=== PATIENT | female | born 1995 | race Caucasian/White ===

== ENCOUNTER 2017-05-13 04:45 | Emergency (ER) | payer OTHER ==
[~2017-05-13] VITALS: Ht 157.5 cm; Wt 113.4 kg
--- NOTE | 2017-05-13 04:56 | NUR ---
PT BIB SELF FROM HOME, PT AMBULATORY TO ER BED 2 PT C/O LEFT SIDED PELVIC PAIN X 2 WEEKS. PT AOX3 RR EVEN AND UNLABORED. NO SOB NOTED. NAD NOTED. NO NVD AT THIS TIME. PT GOWNED AND WAITING FOR MD GRAHAM. URINE COLLECTED. CALLED LAB FOR EXHIBITIONS CURATOR.
--- NOTE | 2017-05-13 05:15 | NUR ---
PT MOVED TO ER BED 7 FOR PELVIC EXAM. LAB AT BEDSIDE FOR BLOOD DRAW.
[2017-05-13 05:25] LABS: BASOPHILS % (AUTO) 0.5 % (0.0-2.0); EOSINOPHILS # (AUTO) 0.3 /CMM (0.0-0.7); EOSINOPHILS % (AUTO) 3.2 % (0.0-6.0); HEMATOCRIT 41 % (33-45); HEMOGLOBIN 13.8 g/dL (11.5-14.8); LYMPHOCYTES # (AUTO) 2.8 /CMM (0.8-4.8); MEAN CORPUSCULAR HEMOGLOBIN 27 PG (26.0-33.0); MEAN CORPUSCULAR HGB CONC 34 g/dl (31.0-36.0); MEAN CORPUSCULAR VOLUME 80 fL (82-100); MONOCYTES # (AUTO) 0.7 /CMM (0.1-1.30); MONOCYTES % (AUTO) 7.9 % (2.0-12.0); NEUTROPHILS # (AUTO) 4.5 /CMM (1.8-8.9); NEUTROPHILS % (AUTO) 54.4 % (43.0-81.0); PLATELET COUNT (AUTO) 293 /CMM (150-450); RDW COEFFICIENT OF VARIATION 12.8 (11.5-15.0); RED BLOOD CELL COUNT(AUTO) 5.11 MIL/uL (4.0-5.2); WHITE BLOOD COUNT (AUTO) 8.3 K/uL (4.3-11.0)
--- NOTE | 2017-05-13 05:26 | NUR ---
DR. MENDENHALL AT BEDSIDE FOR PELVIC EXAM. GAUTAM AT BEDSIDE WITNESS.
[2017-05-13 05:31] LABS: APPEARANCE,URINE CLEAR (CLEAR); BILIRUBIN,URINE 1+ (NEGATIVE); BLOOD, URINE 3+ Ery/uL (NEGATIVE); COLOR,URINE DARK YELLO (YELLOW); KETONES,URINE TRACE (NEGATIVE); LEUKOCYTE ESTERASE ,URINE NEGATIVE (NEGATIVE); NITRITE, URINE NEGATIVE (NEGATIVE); PH,URINE 5.5 (5.0-8.0); PROTEIN,URINE 1+ mg/dl (NEGATIVE); UGLUCOSE NEGATIVE (NEGATIVE); UROBILINOGEN,URINE 0.2 EU/dL (0.2)
[2017-05-13 05:34] LABS: CALCIUM, SERUM 8.8 mg/dL (8.5-10.1); CREATININE 0.8 mg/dL (0.6-1.3); POTASSIUM 3.6 mmol/L (3.5-5.1)
[2017-05-13 05:38] LABS: BACTERIA,URINE Moderate /HPF (None Seen); RBC,URINE TOO NUMEROUS TO COUN /HPF (0-2)
[2017-05-13 05:39] LABS: PREGNANCY TEST URINE QUAL NEGATIVE (NEGATIVE); SQUAMOUS EPITHELIAL CELL,UR Moderate /HPF (None Seen)
--- NOTE | 2017-05-13 06:21 | NUR ---
VIKRAM AT BEDSIDE
[2017-05-13] MEDS ORDERED: KETOROLAC TROMETHAMINE 15 MG/ML VIAL ONE (07:04)
--- NOTE | 2017-05-13 07:14 | NUR ---
DR. MENDENHALL AT BEDSIDE SPEAKING TO PT REGARDING RESULTS.
--- NOTE | 2017-05-13 07:18 | NUR ---
Patient discharged to home in stable condition. Written and verbal after care instructions given. Patient verbalizes understanding of instruction. PT ambulatory with a steady gait
[2017-05-13 07:19] VITALS: BP 128/68
[2017-05-13] MEDS ORDERED: KETOROLAC TROMETHAMINE INJ 30 MG/ML VIAL IM/IV ONE (07:30)
== END 2017-05-13 07:19 | disposition home or self-care (01) ==
LOC: ER 04:46
DX: N83.202 Unspecified ovarian cyst, left side (principal); Z98.890 Other specified postprocedural states; Z91.018 Allergy to other foods; Z91.013 Allergy to seafood
CPT/HCPCS: 36415; 76856; 80048; 81001; 84703; 85025; 87086; 96372; 99285; A4606; A6402; J1885; Z7610; 81000-TC

== ENCOUNTER 2018-03-02 18:24 | Emergency (ER) | payer OTHER ==
[~2018-03-02] VITALS: Ht 157.5 cm; Wt 113.4 kg
--- NOTE | 2018-03-02 19:18 | NUR ---
REPORT REC'D FROM LAURA MORIN FOR MYLENE.
--- NOTE | 2018-03-02 20:17 | NUR ---
CALLED ROYCE HANSON.
--- NOTE | 2018-03-02 20:31 | NUR ---
PT IS REC'ING AN DEEPALI WRAP TO THE LEFT ANKLE.
--- NOTE | 2018-03-02 20:32 | NUR ---
Patient discharged to home in stable condition. Written and verbal after care instructions given. Patient verbalizes understanding of instruction. PT AMBULATED OUT WITH A SLOW STEADY GAIT. VSS.
[2018-03-02 20:38] VITALS: BP 128/82
== END 2018-03-02 18:46 | disposition home or self-care (01) ==
LOC: ER 18:27
DX: S93.692A Other sprain of left foot, initial encounter (principal); S90.122A Contusion of left lesser toe(s) without damage to nail, initial encounter; Z86.19 Personal history of other infectious and parasitic diseases; Z90.89 Acquired absence of other organs; Z91.013 Allergy to seafood; Z91.018 Allergy to other foods; W01.0XXA Fall on same level from slipping, tripping and stumbling without subsequent striking against object, initial encounter; Y93.89 Activity, other specified; Y92.89 Other specified places as the place of occurrence of the external cause; Y99.8 Other external cause status
CPT/HCPCS: 73630-TC; A4606; Z7610

== ENCOUNTER 2019-11-26 14:01 | Emergency (ER) | payer OTHER ==
[~2019-11-26] VITALS: Ht 162.6 cm; Wt 112.0 kg
[2019-11-26 14:09] VITALS: BP 165/82
--- NOTE | 2019-11-26 14:20 | NUR ---
SEEN AND EXAMINED BY .
--- NOTE | 2019-11-26 14:55 | NUR ---
Patient discharged to home in stable condition. Written and verbal after care instructions given. Patient verbalizes understanding of instruction.
--- NOTE | 2019-11-26 14:56 | NUR ---
Patient discharged to home in stable condition. Written and verbal after care instructions given. Patient verbalizes understanding of instruction.
== END 2019-11-26 14:56 | disposition home or self-care (01) ==
LOC: ER 14:01
DX: J06.9 Acute upper respiratory infection, unspecified (principal)

== ENCOUNTER 2020-09-27 12:17 | Emergency (ER) | payer OTHER ==
[~2020-09-27] VITALS: Ht 162.6 cm; Wt 99.8 kg
[2020-09-27 12:29] VITALS: BP 99/57
--- NOTE | 2020-09-27 13:49 | NUR ---
Patient discharged to home in stable condition. Written and verbal after care instructions given. Patient verbalizes understanding of instruction.
== END 2020-09-27 13:50 | disposition home or self-care (01) ==
LOC: ER 12:19
DX: S93.491A Sprain of other ligament of right ankle, initial encounter (principal); Z90.89 Acquired absence of other organs; Z91.013 Allergy to seafood; Z91.018 Allergy to other foods; X50.1XXA Overexertion from prolonged static or awkward postures, initial encounter; Y93.89 Activity, other specified; Y92.89 Other specified places as the place of occurrence of the external cause; Y99.8 Other external cause status
CPT/HCPCS: 73610-TC

== ENCOUNTER 2021-05-06 09:10 | Emergency (ER) | payer OTHER ==
[~2021-05-06] VITALS: Ht 157.5 cm; Wt 113.4 kg
--- NOTE | 2021-05-06 09:20 | NUR ---
Patient bibs presenting with swollen lips since last night, last benadryl last night, no SOB noted. Patient alert and oriented x4. Denies any pain at this time. Will continue to monitor.
[2021-05-06] MEDS ORDERED: FAMOTIDINE (20 MG) 20 MG TABLET PO ONE (09:30)
[2021-05-06] MEDS ORDERED: EPINEPHRINE (1:1000) MDV 30 MG/30ML VIAL SUBCUT ONE (09:30)
[2021-05-06] MEDS ORDERED: predniSONE 20 MG TABLET ONE (09:30)
[2021-05-06] MEDS ORDERED: predniSONE 10 MG TABLET PO ONE (09:30)
[2021-05-06] MEDS ORDERED: EPINEPHRINE (1:1000) 1 MG/ML AMPUL ONE (09:30)
[2021-05-06] MEDS ORDERED: FAMOTIDINE (20 MG) 20 MG TABLET ONE (09:31)
[2021-05-06] MEDS ORDERED: FAMO-131 PO (09:40)
[2021-05-06] MEDS ORDERED: EPIN0.3P3 IJ (09:40)
[2021-05-06] MEDS ORDERED: PRED50TA PO (09:41)
[2021-05-06 11:21] VITALS: BP 132/71
--- NOTE | 2021-05-06 11:21 | NUR ---
Patient discharged to home in stable condition. Written and verbal after care instructions given. Patient verbalizes understanding of instruction.
== END 2021-05-06 11:21 | disposition home or self-care (01) ==
LOC: ER 09:26
DX: T78.40XA Allergy, unspecified, initial encounter (principal); R22.0 Localized swelling, mass and lump, head; Z90.89 Acquired absence of other organs; Z91.013 Allergy to seafood; Z91.018 Allergy to other foods; Z79.899 Other long term (current) drug therapy; X58.XXXA Exposure to other specified factors, initial encounter
CPT/HCPCS: 96372; 99291; J0171 ×2; J7512 ×2